=== PATIENT | male | born 1945 | race Two or more races ===

== ENCOUNTER 2018-03-27 10:55 | Outpatient (CLI) | payer OTHER ==
[~2018-03-27 10:55] MED LIST: GLIMEPIRIDE1 MG; METFORMIN HCL500 M2 PO; SIMVASTATIN20 MG PO
== END 2018-03-27 10:59 | disposition home or self-care (01) ==
LOC: RAD 10:55
DX: N13.2 Hydronephrosis with renal and ureteral calculous obstruction (principal)

== ENCOUNTER → 2018-03-27 12:06 | Outpatient (CLI) | payer OTHER | END | disposition home or self-care (01) | LOC: LAB 12:06 | DX: N39.0 Urinary tract infection, site not specified (principal) ==

== ENCOUNTER 2018-03-28 07:28 | Outpatient (CLI) | payer OTHER | END 2018-03-28 07:36 | disposition home or self-care (01) | LOC: RAD 07:28 → SONOGRAMA 07:28 → RAD 07:36 → MAMO-SONO 08:15 | DX: N13.2 Hydronephrosis with renal and ureteral calculous obstruction (principal); M84.454A Pathological fracture, pelvis, initial encounter for fracture; M84.350 Stress fracture, pelvis ==

== ENCOUNTER 2018-03-29 09:26 | Outpatient (CLI) | payer OTHER | END 2018-03-29 09:44 | disposition home or self-care (01) | LOC: LAB 09:26 | DX: N39.0 Urinary tract infection, site not specified (principal) ==

== ENCOUNTER 2018-05-02 09:26 | Outpatient (CLI) | payer OTHER | END 2018-05-02 09:38 | disposition home or self-care (01) | LOC: MRI 09:26 | DX: M51.37 Other intervertebral disc degeneration, lumbosacral region (principal); M51.27 Other intervertebral disc displacement, lumbosacral region; E78.2 Mixed hyperlipidemia; E11.65 Type 2 diabetes mellitus with hyperglycemia; D37.6 Neoplasm of uncertain behavior of liver, gallbladder and bile ducts; N39.3 Stress incontinence (female) (male); D64.89 Other specified anemias; D72.829 Elevated white blood cell count, unspecified; B37.0 Candidal stomatitis; M15.0 Primary generalized (osteo)arthritis; F03.90 Unspecified dementia, unspecified severity, without behavioral disturbance, psychotic disturbance, mood disturbance, and anxiety; T50.905S Adverse effect of unspecified drugs, medicaments and biological substances, sequela | CPT/HCPCS: 72148 ==

== ENCOUNTER 2018-07-03 07:05 | Outpatient (CLI) | payer OTHER | END 2018-07-03 07:09 | disposition home or self-care (01) | LOC: RAD 07:05 | DX: M48.062 Spinal stenosis, lumbar region with neurogenic claudication (principal) ==

== ENCOUNTER 2018-08-19 10:42 | Outpatient (CLI) | payer OTHER | END 2018-08-19 10:45 | disposition home or self-care (01) | LOC: RAD 10:42 | DX: M48.062 Spinal stenosis, lumbar region with neurogenic claudication (principal) ==

== ENCOUNTER 2018-12-08 11:26 | Outpatient (CLI) | payer OTHER | END 2018-12-08 11:29 | disposition home or self-care (01) | LOC: RAD 11:26 | DX: M48.062 Spinal stenosis, lumbar region with neurogenic claudication (principal) ==

== ENCOUNTER 2019-01-12 10:54 | Outpatient (CLI) | payer OTHER | END 2019-01-12 10:58 | disposition home or self-care (01) | LOC: RAD 10:54 | DX: M25.571 Pain in right ankle and joints of right foot (principal); S93.401A Sprain of unspecified ligament of right ankle, initial encounter; S99.911A Unspecified injury of right ankle, initial encounter ==

== ENCOUNTER 2019-05-27 09:15 | Outpatient (CLI) | payer OTHER | END 2019-05-27 09:17 | disposition home or self-care (01) | LOC: RAD 09:15 | DX: M48.062 Spinal stenosis, lumbar region with neurogenic claudication (principal) ==

== ENCOUNTER → 2020-09-01 19:22 | Outpatient (CLI) | payer OTHER | END | disposition home or self-care (01) | LOC: PPH VACUNA 19:22 | PROVIDERS: ATTEND Emergency Medicine Pediatric Emergency Medicine | DX: Z23 Encounter for immunization (principal) ==